=== PATIENT | male | born 1955 | race Caucasian/White ===

== ENCOUNTER 2019-08-04 15:45 | Emergency (ER) | payer OTHER ==
[~2019-08-04] VITALS: Ht 175.3 cm; Wt 97.5 kg
[2019-08-04 16:53] LABS: ABSOLUTE BASOPHILS 0.1 thou/uL (0.0-0.2); ABSOLUTE EOSINOPHILS 0.3 thou/uL (0.0-0.7); ABSOLUTE MONOCYTES 0.5 thou/uL (0.0-1.2); ABSOLUTE NEUTROPHILS 3.5 thou/uL (1.6-8.1); BASOPHILS 1.3 %; EOSINOPHILS 4.4 %; HEMATOCRIT 39.1 % (42.0-52.0); HEMOGLOBIN 14.1 gm/dL (14.0-18.0); LYMPHOCYTES 31.1 %; MCH 33.1 pg (26.0-34.0); MONOCYTES 8.5 %; MPV 9.2 fl. (7.2-11.1); NUCLEATED RBCS 0 /100WBC; PLATELET COUNT* 165 thou/uL (150-400); POLYS 54.7 %; RBC 4.25 mil/uL (4.50-6.00); RDW-CV 13.5 % (10.5-14.5); WBC 6.4 thou/uL (4.0-11.0)
[2019-08-04 16:55] LABS: INFLUENZA A ANTIGEN Negative (Negative); INFLUENZA B ANTIGEN Negative (Negative)
[2019-08-04 16:58] LABS: CALCIUM 8.6 mg/dL (8.5-10.1); POTASSIUM 3.7 mmol/L (3.5-5.1)
[2019-08-04 17:03] LABS: TOTAL BILIRUBIN 0.8 mg/dL (<0.1-1.0); TOTAL PROTEIN 7.3 g/dL (6.4-8.2)
[2019-08-04] MEDS ORDERED: PROMETHAZINE-P118 M1 PO (17:32)
[2019-08-04] MEDS ORDERED: PREDNISONE50 MG PO (17:32)
[2019-08-04] MEDS ORDERED: ZESTORETIC 10-1 EACH PO (17:37)
[2019-08-04 17:47] VITALS: BP 156/90
--- NOTE | 2019-08-05 14:12 | EKG ---
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: : [id number] Requested By: Suni Schulz Order Number: [id number] Isaac MD: Fadi Wyatt Measurements Intervals [place] Rate: 111 P: 63 NE: 154 QRS: 24 QRSD: 102 T: 48 QT: 329 QTc: 447 Interpretive Statements Sinus tachycardia Atrial premature complexes Left atrial enlargement Incomplete right bundle-branch block No previous ECG available for comparison Electronically Signed On 08-05-2019 14:11:28 CDT by Fadi Wyatt [email or web address] <ELECTRONICALLY SIGNED> By: Fadi Wyatt MD, [facility] 08/05/19 1411 1558 1558 Fadi Wyatt MD, FACC /EPI
== END 2019-08-04 17:49 | disposition home or self-care (01) ==
LOC: M.ERS 15:45
PROVIDERS: Personal Emergency Response Attendant
DX: J06.9 Acute upper respiratory infection, unspecified (principal); I10 Essential (primary) hypertension